=== PATIENT | female | born 1995 ===

== ENCOUNTER 2017-03-05 01:25 | Emergency (ER) | payer SELFPAY ==
[2017-03-05 01:36] VITALS: BP 146/106; PULSE 149; RESP 36; TEMP 98; O2SAT 98
--- NOTE | 2017-03-05 02:04 | ED PDOC ---
HPI: Psych/Substance Abuse Time Seen by Provider: 03/05/17 01:38 Chief Complaint (Nursing): Anxiety History Per: Patient Additional Complaint(s): Pt. states she came to hospital today to visit her friend but then she developed an anxiety attack as she is scared of hospitals. States her brother has a "juvenile tumor" which makes her scared of hospitals. Her boyfriend states as soon as they got to the hospital pt. began hyperventilating. Pt. states she does feel suicidal but has no plan. Denies chest pain, SOB, HI, hallucinations. Past Medical History Reviewed: Historical Data, Nursing Documentation, Vital Signs Vital Signs: Last Vital Signs Temp 98 F 03/05/17 01:33 Pulse 149 H 03/05/17 01:33 Resp 36 H 03/05/17 01:33 BP 146/106 H 03/05/17 01:33 Pulse Ox 98 03/05/17 01:33 - Family History Family History: States: No Known Family Hx - Allergies Allergies/Adverse Reactions: Allergies Allergy/AdvReac Type Severity Reaction Status Date / Time No Known Allergies Allergy Verified 03/05/17 01:33 Review of Systems ROS Statement: Except As Marked, All Systems Reviewed And Found Negative Physical Exam - Reviewed Nursing Documentation Reviewed: Yes Vital Signs Reviewed: Yes - Physical Exam Appears: Positive for: Well, In Acute Distress (hyperventilating) Head Exam: Positive for: ATRAUMATIC, NORMAL INSPECTION, NORMOCEPHALIC Skin: Positive for: Normal Color, Warm, DRY Eye Exam: Positive for: EOMI, Normal appearance, PERRL ENT: Positive for: Normal ENT Inspection Neck: Positive for: Normal, Painless ROM Cardiovascular/Chest: Positive for: Tachycardia. Negative for: Murmur Respiratory: Positive for: Normal Breath Sounds. Negative for: Respiratory Distress Gastrointestinal/Abdominal: Positive for: Normal Exam, Soft. Negative for: Tenderness Back: Positive for: Normal Inspection Extremity: Positive for: Normal ROM Neurologic/Psych: Positive for: Alert, Oriented, Mood/Affect (very anxious). Negative for: Aphasia, Facial Droop - Laboratory Results Result Diagrams: 03/05/17 03:19 03/05/17 03:19 - ECG O2 Sat by Pulse Oximetry: 98 - Progress ED Course And Treament: EKG ordered. Crisis evaluation ordered. Pt. placed on 1:1. Ativan 2mg IM ordered. Pt. calmed down prior to getting ativan. Pt. evaluated by crisis and cleared pt. for discharge. Denies SI/HI, hallucinations. Repeart HR: 90; BP: 136/80 Re-evaluation Time: 05:40 (Gait steady unassisted. No slurred speech. ) Condition: Re-examined, Improved Disposition - Clinical Impression Clinical Impression: Anxiety, Alcohol intoxication - Patient ED Disposition Is Patient to be Admitted: No - Disposition Disposition: Routine/Home Disposition Time: 05:39 Condition: IMPROVED Instructions: Alcohol Intoxication (ED), Anxiety (ED) Forms: [employer] (Kiswahili)
[2017-03-05 03:24] LABS: BASO # 0.1 K/uL (0.0-0.2); BASO % 0.7 % (0.0-2.0); EOS # 0.1 K/uL (0.0-0.7); HEMATOCRIT 39.1 % (34.0-47.0); LYMPH % 40.2 % (20.0-40.0); MEAN CELL VOLUME 81.7 fl (81.0-99.0); MEAN CORPUSCULAR HEMOGLOBIN 27.3 pg (27.0-31.0); MEAN CORPUSCULAR HGB CONC 33.5 g/dL (33.0-37.0); MEAN PLATELET VOLUME 6.9 fl (7.2-11.7); MONO # 0.4 K/uL (0.0-0.8); MONO % 5.9 % (0.0-10.0); NEUT # 3.9 K/uL (1.8-7.0); NEUT % 52.2 % (50.0-75.0); NRBC % 0.1 % (0.0-0.0); RED CELL DISTRIBUTION WIDTH 13.8 % (11.5-14.5); WHITE BLOOD COUNT 7.5 K/uL (4.8-10.8)
[2017-03-05 03:33] LABS: ALB/GLOB RATIO 1.2 (1.0-2.1); ALCOHOL SERUM 182 mg/dl (0-10); ALKALINE PHOSPHATASE 67 U/L (38-126); ALT/SGPT 62 U/L (9-52); AST/SGOT 39 U/L (14-36); BILIRUBIN,TOTAL 0.1 mg/dl (0.2-1.3); BLOOD UREA NITROGEN 6 mg/dl (7-17); CARBON DIOXIDE 27 mmol/L (22-30); CHLORIDE 108 mmol/L (98-107); GFR AFRICAN-AMERICAN > 60; GLUCOSE,RANDOM 110 mg/dL (65-105); POTASSIUM 4.1 MMOL/L (3.6-5.0); SODIUM 149 mmol/l (132-148); TOTAL PROTEIN 8.1 G/DL (6.3-8.2)
== END 2017-03-05 06:10 | disposition home or self-care (01) ==
LOC: H.ER 01:25
DX: F10.129 Alcohol abuse with intoxication, unspecified (principal); F41.9 Anxiety disorder, unspecified
CPT/HCPCS: 80053; 85025; 99281; G0480